=== PATIENT | male | born 1960 | race Caucasian/White ===

== ENCOUNTER 2018-02-13 14:26 | Inpatient (IN) | END 2018-02-16 15:14 | disposition home or self-care (01) | DRG 378 ==

== ENCOUNTER 2018-02-23 11:12 | Emergency (ER) | END 2018-02-23 14:24 | disposition home or self-care (01) ==

== ENCOUNTER 2018-09-12 09:00 | Emergency (ER) | payer MEDICAID ==
[~2018-09-12] VITALS: Ht 160 cm; Wt 66.6 kg
[~2018-09-12 09:00] MED LIST: PANT40TA3 PO; PROP10TA6 PO
[2018-09-12 09:14] VITALS: Ht 160 cm; Wt 66.6 kg
--- NOTE | 2018-09-12 09:32 | ERD ---
ER Documentation Chief Complaint Chief Complaint Pt here for paracentesis, last para 20 days ago. HPI 58-year-old male who presents to the emergency room asking for paracentesis. The patient had a paracentesis approximately 20 days ago. Patient describes abdominal fullness. No fevers or chills or pain. No hematemesis, no melena. ROS All systems reviewed and are negative except as per history of present illness. Medications Home Meds Active Scripts Pantoprazole* (Protonix*) 40 Mg Tablet.dr, 40 MG PO BID, #60 TAB 4 Refills Prov:CHIKASACHI S. 02/16/18 Propranolol Hcl* (Propranolol Hcl*) 10 Mg Tablet, 10 MG PO BID, #60 TAB 4 Refills Prov:SACHI BENITES S. 02/16/18 Allergies Allergies: Coded Allergies: No Known Allergy (Unverified , 02/13/18) PMhx/Soc History of Surgery: Yes (Cyst removal from left side of back (2016)) Anesthesia Reaction: No Hx Neurological Disorder: No Hx Respiratory Disorders: No Hx Cardiac Disorders: No Hx Psychiatric Problems: No Hx Miscellaneous Medical Probl: Yes (CIRRHOSIS ) Hx Alcohol Use: Yes (EXCESSIVE ETOH UNTIL THREE MONTHS AGO) Hx Substance Use: No Hx Tobacco Use: No FmHx Family History: No diabetes Physical Exam Vitals Vital Signs Date Temp Pulse Resp B/P (MAP) Pulse Ox O2 O2 Flow FiO2 Time Delivery Rate 09/12/18 97.5 66 18 134/69 98 Room Air 13:25 (90) 09/12/18 97.9 68 18 135/69 98 Room Air 13:06 (91) 09/12/18 97.5 70 16 129/81 99 Room Air 12:18 (97) 09/12/18 97.8 18 14 109/75 99 09:14 (86) Physical Exam General: Well developed, well nourished, no acute distress Head: Normocephalic, atraumatic. Eyes: EOM intact ENT: Moist mucous membranes Neck: Full ROM Respiratory: No respiratory distress Cardiovascular: Well perfused distally Abdominal: Nondistended, protuberant with fluid wave, nontender : Deferred MSK: No edema, no unilateral swelling, 5/5 strength Neurologic: Alert and oriented, moving all extremities, normal speech, steady gait Skin: No rash Psych: Normal mood Procedures/MDM EKG, MONITORS, & DIAGNOSTIC IMAGING: Therapeutic paracentesis performed by interventional radiology. LAB INTERPRETATION: No significant coagulopathy noted on laboratory testing within the past 30 days MEDICAL DECISION MAKING: The patient presents with abdominal ascites likely secondary to cirrhosis. Patient does not exhibit any signs or symptoms concerning for complications of cirrhosis such as GI bleed, hepatic encephalopathy or spontaneous bacterial peritonitis. There is no indication currently for diagnostic paracentesis. The patient will benefit from therapeutic paracentesis by interventional radiology. If the patient remains stable without evidence of hemodynamic compromise or post -paracentesis circulatory dysfunction secondary to fluid shifts the patient can be safely discharged home with close primary care and hepatology follow-up. It should be noted that the patient does check in under different name; Jamaal Collins ER COURSE: The patient had successful therapeutic paracentesis limited to 5L. The patient remained hemodynamically stable and otherwise well-appearing. The patient is safe for discharge home. No indication for albumin infusion at this time. I kept the patient and/or family informed of laboratory and diagnostic imaging results throughout the emergency room course. DISPOSITION PLAN: We discussed follow up with the patient's primary care doctor within 24 to 48 hours as needed. We also discussed return to the emergency room for worsening symptoms or worsening condition. Discharge Medications: None Departure Diagnosis: Primary Impression: Alcoholic cirrhosis of liver with ascites Condition: Stable PERLA MONTAGUE MD Sep 12, 2018 09:32
[2018-09-12] MEDS ORDERED: LIDOCAINE 1% (MPF) 5 ML VIAL ONE ×2 (13:38→13:42)
[2018-09-12 13:43] VITALS: BP 115/71; PULSE 62; RESP 18
== END 2018-09-12 13:44 | disposition home or self-care (01) ==
LOC: E/R 09:00 → FTE 13:44
DX: K70.31 Alcoholic cirrhosis of liver with ascites (principal)
CPT/HCPCS: Z7502; Z7610